=== PATIENT | female | born 1965 | race Caucasian/White ===

== ENCOUNTER → 2019-11-18 | Outpatient (CLI) | payer OTHER ==
[~2019-11-18] MED LIST: HOLD METFORMIN - RECEIVED CONTRAST 20 ML VIAL IV SCH; IOHEXOL 350 MG/ML 100 ML (OMNIPAQUE 350) VIAL IV ONE; NS 100 ML (IVPB) BAG IV ONE
--- NOTE | 2019-11-18 17:05 | Diagnostic Imaging Report ---
PROCEDURE: CT chest with contrast only. TECHNIQUE: Multiple contiguous axial images were obtained through the chest after administration of intravenous contrast. Auto Exposure Controls were utilized during the CT exam to meet ALARA standards for radiation dose reduction. INDICATION: Bronchitis, cough for one week. COMPARISON STUDIES: None. FINDINGS: Postcontrast CT scanning of the chest demonstrates a few paratracheal lymph nodes which are upper normal in size. Remainder of the lymph nodes are normal. Heart size is normal. Mild calcifications are present in the coronary arteries. There are no pleural or pericardial effusions. Visualized portions of the abdomen appear normal. Normal opacification of the major pulmonary arteries is present. Bibasilar infiltrates are present. IMPRESSION: 1. There are bibasilar infiltrates. 2. A few lymph nodes in the mediastinum which are upper normal in size and probably reactive. 3. Mild calcifications are present in the coronary arteries. Dictated by: Dictated on workstation # [id number]
== END ==
LOC: RAD 16:02
DX: I25.10 Atherosclerotic heart disease of native coronary artery without angina pectoris (principal); J40 Bronchitis, not specified as acute or chronic; Z72.0 Tobacco use
CPT/HCPCS: 71260